=== PATIENT | female | born 1950 | race Two or more races ===

== ENCOUNTER → 2019-07-20 | Outpatient (CLI) | payer MEDICARE ==
--- NOTE | 2019-07-20 13:45 | RAD ---
2 views left knee without comparison for knee pain. FINDINGS: There is no fracture, dislocation, or acute osseous abnormality identified. There is tricompartmental osteoarthritis, most notable in the medial joint compartment with moderate narrowing. No suprapatellar joint effusion. No radiopaque foreign bodies. IMPRESSION: 1. Moderate osteoarthritis primarily involving the medial joint compartment. No acute osseous abnormality. Electronically signed by: Jake Baltazar MD (07/20/2019 1:42 PM) [id number]
== END ==
LOC: DXRAD 13:19
PROVIDERS: ATTEND Physician Assistant
DX: M17.12 Unilateral primary osteoarthritis, left knee (principal)
CPT/HCPCS: 73560

== ENCOUNTER → 2020-09-26 | Outpatient (CLI) | payer MEDICARE ==
--- NOTE | 2020-09-26 15:25 | RAD ---
EXAM: US HEAD/NECK SOFT TISSUE. HISTORY: Palpable focus right inferior neck. COMPARISON: None. FINDINGS: Sonographic evaluation of the neck soft tissues was performed at the site of concern. The focus of palpable concern appears to correspond with the sternoclavicular joint and associated ca psular hypertrophy. There are similar slightly lesser changes on the left. No suspicious mass or flui d collection is identified. IMPRESSION: 1. The palpable focus corresponds with the sternoclavicular joint an associated degenerative hypertro phy. If this is clinically inconsistent, CT of the neck soft tissues with contrast could further eval uate. Electronically signed by: Marianela Mcnamara MD (09/26/2020 3:22 PM) [id number]
== END ==
LOC: US 10:56
PROVIDERS: ATTEND Nurse Practitioner Family
DX: R22.1 Localized swelling, mass and lump, neck (principal)
CPT/HCPCS: 76536